=== PATIENT | female | born 1985 | race Caucasian/White ===

== ENCOUNTER 2019-05-25 19:35 | Emergency (ER) | payer MEDICAID ==
[~2019-05-25] VITALS: Ht 157.5 cm; Wt 60.9 kg
[2019-05-25 19:40] VITALS: Ht 157.5 cm; Wt 60.9 kg
[2019-05-25] MEDS ORDERED: NEURONTIN 400400 MG PO (19:41)
[2019-05-25] MEDS ORDERED: VALIUM10 MG PO (19:41)
[2019-05-25] MEDS ORDERED: KEPPRA500 MG PO (19:42)
[2019-05-25] MEDS ORDERED: DOXEPIN HCL75 MG PO (20:08)
--- NOTE | 2019-05-25 21:04 | NUR ---
PATIENT CAME TO ER FOR AN ALLERGIC REACTION, SHE DOES NOT HAVE THOUGHTS OF HARMING HERSELF OR WANTING TO . SHE CAN LIST REASONS HER CHILDREN, FIANCE. SUICIDE PREVENTION SHEET GIVEN TO PATIENT.
[2019-05-25] MEDS ORDERED: PEPCID40 MG PO (21:11)
[2019-05-25] MEDS ORDERED: STERAPRED DS 1010 MG PO (21:11)
[2019-05-25 21:39] VITALS: BP 138/80
== END 2019-05-25 21:39 | disposition home or self-care (01) ==
LOC: D.ER 19:35
DX: J02.9 Acute pharyngitis, unspecified (principal); F17.200 Nicotine dependence, unspecified, uncomplicated

== ENCOUNTER 2019-06-24 15:55 | Emergency (ER) | payer MEDICAID ==
[~2019-06-24] VITALS: Ht 157.5 cm; Wt 66.4 kg
[~2019-06-24 15:55] MED LIST: DOXEPIN HCL75 MG PO; KEPPRA500 MG PO; NEURONTIN 400400 MG PO; PEPCID40 MG PO; STERAPRED DS 1010 MG PO; VALIUM10 MG PO
[2019-06-24 16:25] VITALS: Ht 157.5 cm; Wt 66.4 kg
[2019-06-24] MEDS ORDERED: FIORICET/ESGIC1 TAB PO (16:27)
[2019-06-24] MEDS ORDERED: CYCLOBENZAPRINE10 MG PO (16:28)
[2019-06-24] MEDS ORDERED: SEROQUEL100 MG PO (16:28)
[2019-06-24 18:49] VITALS: BP 110/68
== END 2019-06-24 18:50 | disposition home or self-care (01) ==
LOC: D.ER 15:55
DX: S70.01XA Contusion of right hip, initial encounter (principal); W19.XXXA Unspecified fall, initial encounter; Y93.9 Activity, unspecified; Y92.9 Unspecified place or not applicable; I25.2 Old myocardial infarction; Z72.0 Tobacco use

== ENCOUNTER 2019-09-21 21:36 | Emergency (ER) | payer OTHER ==
[~2019-09-21] VITALS: Ht 157.5 cm; Wt 79.5 kg
[~2019-09-21 21:36] MED LIST changes: +CYCLOBENZAPRINE10 MG PO; +FIORICET/ESGIC1 TAB PO; +SEROQUEL100 MG PO
[2019-09-21 21:43] VITALS: Ht 157.5 cm; Wt 79.5 kg
[2019-09-21 23:35] LABS: BILIRUBIN NEGATIVE (NEGATIVE); GLUCOSE NEGATIVE (NEGATIVE); HCG URINE NEGATIVE (NEGATIVE); KETONE NEGATIVE (NEGATIVE); NITRITE NEGATIVE (NEGATIVE); SPECIFIC GRAVITY 1.015 (1.005-1.020); UROBILINOGEN NORMAL (NORMAL)
[2019-09-21 23:43] LABS: UDS - AMPHET NEGATIVE QUAL (NEGATIVE); UDS - BARB POSITIVE QUAL (NEGATIVE); UDS - BENZO POSITIVE QUAL (NEGATIVE); UDS - COCAINE NEGATIVE QUAL (NEGATIVE); UDS - OPIATE NEGATIVE QUAL (NEGATIVE); UDS - PCP NEGATIVE QUAL (NEGATIVE); UDS - THC NEGATIVE QUAL (NEGATIVE)
[2019-09-22] MEDS ORDERED: FLAGYL500 MG PO (00:05)
[2019-09-22 01:06] VITALS: BP 120/81
== END 2019-09-22 01:07 | disposition home or self-care (01) ==
LOC: D.ER 21:36
PROVIDERS: Family Medicine
DX: T76.21XA Adult sexual abuse, suspected, initial encounter (principal); M25.552 Pain in left hip; M25.551 Pain in right hip; S09.90XA Unspecified injury of head, initial encounter

== ENCOUNTER 2019-10-29 20:27 | Emergency (ER) | payer OTHER ==
[~2019-10-29] VITALS: Ht 157.5 cm; Wt 79.1 kg
[~2019-10-29 20:27] MED LIST changes: +FLAGYL500 MG PO
[2019-10-29 20:33] VITALS: Ht 157.5 cm; Wt 79.1 kg
[2019-10-29] MEDS ORDERED: VALIUM10 MG PO (20:34)
[2019-10-29] MEDS ORDERED: GABAPENTIN300 MG PO (20:35)
[2019-10-29] MEDS ORDERED: CYCLOBENZAPRINE10 MG PO (20:35)
[2019-10-29] MEDS ORDERED: ESGIC TABLET1 TAB PO (20:35)
[2019-10-29] MEDS ORDERED: SEROQUEL100 MG PO (20:35)
[2019-10-29] MEDS ORDERED: SINEQUAN100 MG PO (20:36)
[2019-10-29] MEDS ORDERED: KEFLEX500 MG PO (22:30)
[2019-10-29 22:55] VITALS: BP 128/84
== END 2019-10-29 22:55 | disposition home or self-care (01) ==
LOC: D.ER 20:27
DX: J02.9 Acute pharyngitis, unspecified (principal); R06.02 Shortness of breath; R51 Headache; Z72.0 Tobacco use